=== PATIENT | male | born 1985 | race Caucasian/White ===

== ENCOUNTER → 2017-11-21 10:32 | Outpatient (CLI) | payer OTHER, SELFPAY ==
--- NOTE | 2017-11-21 | DI.ECHO.S_ITS ---
[facility] +---------+ : : [address] : [place] : : : : [id number] : : : : Phone: [phone]---------+ Echocardiogram Report + + :Name: RIC BOTELLO Study Date: 11/21/2017 Height: 74 in : :[facility] Weight: 278 lb : : Gender: Male BSA: 2.5 m2 : :: 1985 Age: 32 yrs BP: 118/96 mmHg: :Reason For Study: Abnormal ECG : : Performed By: Nguyen Villarreal : :Referring: PEMA BURNS : + + Interpretation Summary 1) Assymetric left ventricular hypertrophy with normal size, wall motion, and systolic function (EF 60-65%). 2) Spetal thickness 1.4cm. No systolic anterior motion of the mitral valve present. 3) Normal right ventricular size and function. 4) No significant valvular abnormalities. 5) No prior Echo available for comparison. Procedure: A two-dimensional transthoracic echocardiogram with color flow and Doppler was performed. The study quality was technically adequate. There is no prior echocardiogram noted for this patient. The patient was in normal sinus rhythm during the exam. Left Ventricle: The left ventricle is normal in size. There is mild asymmetric left ventricular hypertrophy. The ejection fraction is estimated to be 60-65%. Left ventricular systolic function is normal. There are no focal wall motion abnormalities. Assessment of diastolic parameters indicates normal left ventricular diastolic function and normal filling pressures. Right Ventricle: The right ventricle grossly appears normal in size with probable normal systolic function. Atria: The left atrial size is normal. Right atrial size is normal. The interatrial septum is intact with no evidence for an atrial septal defect. Mitral Valve: The mitral valve is normal in structure and function. There is no mitral regurgitation noted. Aortic Valve: The aortic valve is trileaflet. The aortic valve opens well. There is no aortic valve stenosis. No aortic regurgitation is present. Tricuspid Valve: The tricuspid valve is normal in structure and function. There is trace tricuspid regurgitation. The right ventricular systolic pressure is estimated at 24 mmHg assuming a right atrial pressure of 3 mm Hg. Pulmonic Valve: The pulmonic valve is not well seen, but is grossly normal. There is no pulmonic valvular regurgitation. Great Vessels: The aortic root is normal size. The dimensions of the ascending aorta are normal. The IVC is of normal diameter and collapses greater than 50% with a sniff. This suggests a low right atrial pressure of 3 mm Hg. Pericardium/ Pleura There is no pericardial effusion. There is no pleural effusion. MMode/2D Measurements & Calculations LVIDd: 4.9 cm Ao root diam: 3.8 cm LVIDs: 2.9 cm Aortic Jxn: 3.0 cm FS: 41.0 % asc Aorta Diam: 3.4 cm EPSS: 0.54 cm Ao Arch Diam (Prox Trans): 3.1 cm IVSd: 1.4 cm LVPWd: 1.1 cm LV price. diameter/BSA (cm/m^2): 2.0 LV sys. diameter/BSA (cm/m^2): 1.2 LA dimension: 4.2 cm RA long axis: 4.9 cm LA A2 area: 18.9 cm2 RA area: 15.6 cm2 LA A4 area: 20.7 cm2 RA vol: 42.1 ml LA length (vol): 5.5 cm RA : 16.8 ml/m2 LA vol: 60.2 ml IVC diam: 1.9 cm LA vol index: 24.1 ml/m2 RVDd major: 6.1 cm RVD1 (basal): 4.3 cm RVD2 (mid): 3.9 cm Doppler Measurements & Calculations Ao V2 max: 138.2 cm/sec MV E max chapo: 81.4 cm/sec Ao V2 mean: 94.6 cm/sec MV A max chapo: 59.2 cm/sec Ao max P.6 mmHg MV E/A: 1.4 Ao mean P.1 mmHg Med Peak E' Chapo: 7.5 cm/sec Ao V2 VTI: 27.8 cm E/E' med: 10.9 Lat Peak E' Chapo: 12.1 cm/sec E/E' lat: 6.7 E/e' average: 8.8 MV dec time: 0.27 sec MV P1/2t: 81.9 msec TR max chapo: 226.6 cm/sec MV P1/2t max chapo: 81.8 cm/sec TR max P.5 mmHg MVA(P1/2t): 2.7 cm2 PA V2 max: 99.4 cm/sec PA V2 mean: 72.7 cm/sec PA mean P.3 mmHg PA Accel Time: 0.17 sec Reading Physician:[id number] PM
== END ==
PROVIDERS: Visit Provider Internal Medicine Cardiovascular Disease
DX: R94.31 Abnormal electrocardiogram [ECG] [EKG] (principal)
CPT/HCPCS: 93306